=== PATIENT | female | born 1975 | race Caucasian/White ===

== ENCOUNTER 2018-02-01 23:23 | Outpatient (CLI) | payer MEDICAID ==
[2018-02-01 23:44] VITALS: BP 115/56
== END 2018-02-02 00:27 | disposition home or self-care (01) ==
LOC: TRG 23:23
PROVIDERS: ATTEND Obstetrics & Gynecology
DX: O47.1 False labor at or after 37 completed weeks of gestation (principal); Z3A.39 39 weeks gestation of pregnancy
CPT/HCPCS: 59025

== ENCOUNTER 2018-02-10 06:33 | Inpatient (IN) | payer MEDICAID ==
[2018-02-10] MEDS: LACTATED RINGERS 1,000 ML IV SCH ×3 (07:00→08:29)
[2018-02-10] MEDS ORDERED: LACTATED RINGERS 2,000 ML ONE (07:05)
--- NOTE | 2018-02-10 07:36 | Anesthesia Consultation ---
Anesthesia Consult and Med Hx Date of service: 02/10/18 - Airway Anesthetic Teeth Evaluation: Good, Vicki (#8-9) ROM Head & Neck: Adequate Mental/Hyoid Distance: Adequate Mallampati Class: Class II Intubation Access Assessment: Probably Good - Pre-Operative Health Status ASA Pre-Surgery Classification: ASA2 Proposed Anesthetic Plan: Epidural, Spinal - Pulmonary Hx Smoking: No Hx Asthma: No Hx Respiratory Symptoms: No SOB: No COPD: No Hx Pneumonia: No Hx Sleep Apnea: No - Cardiovascular System Hx Hypertension: No Hx Coronary Artery Disease: No Hx Heart Attack/AMI: No Hx Angina: No Hx Percutaneous Transluminal Coronary Angioplasty (PTCA): No Hx Cardia Arrhythmia: No Hx Pacemaker: No Hx Internal Defibrillator: No Hx Valvular Heart Disease: No Hx Heart Murmur: No Hx Peripheral Vascular Disease: No - Central Nervous System Hx Neuromuscular Disorder: No Hx Seizures: No CVA: No Hx Back Pain: No Hx Psychiatric Problems: No - Gastrointestinal Hx Ulcer: No Hx Gastroesophageal Reflux Disease: No - Endocrine Hx Renal Disease: No Hx Liver Disease: No Hx Insulin Dependent Diabetes: No Hx Non-Insulin Dependent Diabetes: No Hx Thyroid Disease: No Hx Hypothyroidism: No Hx Hyperthyroidism: No - Hematic Hx Anemia: No Hx Sickle Cell Disease: No - Other Systems Hx Alcohol Use: No Hx Substance Use: No Hx Cancer: No Hx Obesity: No
--- NOTE | 2018-02-10 07:39 | Anesthesia Day of Surgery ---
Anesthesia Day of Surgery - Day of Surgery Patient Examined: Yes Patient H&P Reviewed: Yes Patient is NPO: Yes
[2018-02-10] MEDS ORDERED: SODIUM CHLORIDE FLUSH SYRINGE 10 ML IV PRN (08:00)
[2018-02-10] MEDS ORDERED: REGLAN ONE (08:05)
[2018-02-10] MEDS ORDERED: BICITRA ONE (08:05)
[2018-02-10] MEDS ORDERED: PITOCin/NS 20 UNIT/1000ML DRIP 20,000 MILLIUNITS/1,000 ML BAG IV ONE (08:05)
[2018-02-10] MEDS ORDERED: ANCEF/STERILE WATER 2 GM/20 ML 2 GM/20 ML SYRINGE IV ONE (08:06)
[2018-02-10] MEDS ORDERED: PEPCID IV ONE (08:06)
--- NOTE | 2018-02-10 08:09 | History and Physical Report ---
History of Present Illness Date of examination: 02/10/18 Date of admission: 02/10/18 06:33 Chief complaint: Scheduled C Section History of present illness: Pt is a 42yo HF EDC 02/14/18; EGA 39 3/7 weeks presents for a Repeat C Section. She received care at [facility] since 15 weeks and course has been uncomplicated except for previous C Section x 2. records are available and GBS is Positive. Past History Past Medical History: no pertinent history Past Surgical History: section (x2) Family/Genetic History: diabetes Social history: no significant social history, - Obstetrical History Expected Date of Delivery: 02/14/18 Actual Gestation: 39 Week(s) 3 Day(s) : 5 Medications and Allergies Allergies Allergy/AdvReac Type Severity Reaction Status Date / Time No Known Allergies Allergy Verified 09/17/13 06:02 Home Medications Medication Instructions Recorded Confirmed Last Taken Type Famotidine [Pepcid] 20 mg PO BID #30 tablet 02/18/16 Unknown Rx Active Meds: Active Medications Diphenhydramine HCl (Benadryl) 12.5 mg IV Q2H PRN PRN Reason: Itching Hydromorphone HCl (Dilaudid) 0.5 mg IV Q5M PRN PRN Reason: Breakthrough Pain Ketorolac Tromethamine (Toradol) 30 mg IV Q6H PRN PRN Reason: Pain, Moderate (4-6) Stop: 02/15/18 07:40 Naloxone HCl (Narcan 0.4 Mg/1 Ml) 0.2 mg IV Q2MIN PRN PRN Reason: Res Rate </= 8 or 02 SAT < 92% Ondansetron HCl (Zofran) 4 mg IV Q8H PRN PRN Reason: Nausea And Vomiting Promethazine HCl (Phenergan) 25 mg PO Q6H PRN PRN Reason: Nausea And Vomiting Promethazine HCl (Phenergan) 25 mg [place] Q6H PRN PRN Reason: Nausea And Vomiting Sodium Chloride (Sodium Chloride Flush Syringe 10 Ml) 10 ml IV PRN NR Review of Systems All systems: negative - Vital Signs Vital signs: Vital Signs Temp Pulse Resp BP 98.1 F 71 16 111/59 02/10/18 07:42 02/10/18 07:42 02/10/18 07:42 02/10/18 07:42 Temp Pulse Resp BP Pulse Ox 98.1 F 71 16 111/59 02/10/18 07:42 02/10/18 07:48 02/10/18 07:42 02/10/18 07:48 - Physical Exam Breasts: Positive: deferred Cardiovascular: Regular rate Lungs: Positive: Clear to auscultation Abdomen: Positive: normal appearance Genitourinary (Female): Positive: normal external genitalia Uterus: Positive: enlarged Extremities: Positive: normal - Obstetrical FHR: category 1 Uterine Contraction Monitor Mode: External Uterine Contraction Pattern: Absent Results Result Diagrams: 02/10/18 Unknown All other labs normal. Assessment and Plan - Patient Problems (1) 39 weeks gestation of Onset Date: 02/10/18 Current Visit: No Status: Acute Plan to address problem: A: IUP @ 39 3/7 weeks Previous C Section x 2 AMA P: Admit to L&D for repeat C Section (2) Previous section Onset Date: 02/10/18 Current Visit: No Status: Acute (3) AMA (advanced maternal age) multigravida 35+ Onset Date: 02/10/18 Current Visit: Yes Status: Chronic Qualifiers: Trimester: third trimester Qualified Code(s): O09.523 - Supervision of elderly multigravida, third trimester
[2018-02-10] MEDS ORDERED: ZOFRAN IV PRN (08:30)
[2018-02-10] MEDS ORDERED: PHENERGAN PO PRN (08:30)
[2018-02-10] MEDS ORDERED: TORADOL IV PRN (08:30)
[2018-02-10] MEDS ORDERED: PEPCID IV NR (08:30)
[2018-02-10] MEDS ORDERED: NARCAN 0.4 MG/1 ML IV PRN ×2 (08:30→10:29)
[2018-02-10] MEDS ORDERED: BENADRYL IV PRN (08:30)
[2018-02-10] MEDS ORDERED: PHENERGAN PR PRN (08:30)
[2018-02-10] MEDS ORDERED: BICITRA PO NR (08:30)
[2018-02-10] MEDS ORDERED: REGLAN IV NR (08:30)
[2018-02-10] MEDS ORDERED: DILAUDID IV PRN (08:30)
[2018-02-10 08:39] LABS: Basophils % (Auto) 0.2 % (0.0-1.8); Eosinophils % (Auto) 0.6 % (0.0-4.3); Hematocrit 31.4 % (30.3-42.9); Lymphocytes % (Auto) 29.7 % (13.4-35.0); Mean Corpuscular HGB Conc 32 % (30-34); Mean Corpuscular Volume 72 fl (79-97); Monocytes # (Auto) 0.6 K/mm3 (0.0-0.8); Monocytes % (Auto) 9.1 % (0.0-7.3); Platelet Count 287 K/mm3 (140-440); Red Blood Count 4.37 M/mm3 (3.65-5.03)
[2018-02-10 08:42] LABS: Mean Corpuscular Hemoglobin 23 pg (28-32); Red Cell Distribution Width 21.3 % (13.2-15.2)
[2018-02-10] MEDS ORDERED: NACL 0.9% IR ONE (09:00)
[2018-02-10] MEDS ORDERED: PITOCin/NS 20 UNIT/1000ML DRIP 20 UNITS/1,000 ML BAG IV SCH ×2 (09:00→12:00)
[2018-02-10] MEDS ORDERED: ANCEF/STERILE WATER 2 GM/20 ML 2 GM/20 ML SYRINGE IV NR (09:00)
[2018-02-10] MEDS ORDERED: WATER FOR IRRIG STERILE IR ONE (09:00)
[2018-02-10] MEDS ORDERED: NEO SYNEPHRINE/NS Syringe(OR USE) IV ONE (09:19)
[2018-02-10] MEDS ORDERED: MORPHINE ONE (10:01)
[2018-02-10] MEDS ORDERED: NACL 0.9% 1000 ML 1,000 ML ONE ×2 (10:15)
[2018-02-10] MEDS ORDERED: MYLICON PO PRN (10:29)
[2018-02-10] MEDS ORDERED: SENOKOT PO PRN (10:29)
[2018-02-10] MEDS ORDERED: TUCKS PAD TP PRN (10:29)
[2018-02-10] MEDS ORDERED: MILK OF MAGNESIA PO PRN (10:29)
[2018-02-10] MEDS ORDERED: NORCO 5/325 PO PRN (10:29)
[2018-02-10] MEDS ORDERED: TYLENOL PO PRN (10:29)
[2018-02-10] MEDS ORDERED: LANSINOH TP PRN (10:29)
--- NOTE | 2018-02-10 10:43 | Operative Report ---
Operative Report Operative Report: Date of procedure: 02/10/2018 Pre-operative diagnosis: 1. Intrauterine at 39-3/7 weeks 2. Previous 2 3. Advanced maternal age Post-operative diagnosis: Same Procedure name(s): Repeat low transverse section Surgeon: Nilo Rodriguez MD Construction Scheduler: None Anesthesia: Spinal anesthesia by Dr. Beard EBL: 700 mL Findings: A 3561 g male Apgars 9 at 1 minute and 9 at 5 minutes. Clear amniotic fluid. Normal uterus with lower uterine segment adhesions. Normal tubes and ovaries bilaterally. Procedure: After the patient was prepped and draped in usual sterile fashion, and after satisfactory level of epidural anesthesia was obtained, the skin knife was used to make a transverse skin incision through the previous skin scars. The incision was excised down to layer of the fascia, which was nicked in the midline and extended laterally using the Bovie cautery. The rectus muscles were dissected off the rectus fascia both superiorly and inferiorly. The rectus bellies in the midline, and the peritoneum was entered under direct visualization. The peritoneal incision was extended superiorly and inferiorly. Lower uterine segment adhesions were taken down using both sharp and blunt dissection. A bladder flap was created and the bladder blade was then placed. The uterus was scored in a curvilinear linear fashion, entered in the midline revealing clear amniotic fluid. The 's head was delivered onto the surgical field, and the oropharynx and nasopharynx were bulb suctioned. The rest of the 's body was delivered, cord was doubly clamped and cut and the was handed to the waiting respiratory team. The placenta was manually removed from the uterus, and the uterus removed from its normal anatomical position. After gentle uterine lavage, the incision was inspected and found to be without extensions. It was then closed in 2 layers using 0 Vicryl suture in a running interlocking fashion, the second layer imbricating the first. After good hemostasis was achieved, copious amounts or irrigation was performed, and the gutters were suctioned free of blood and blood clots. The Tisseel sealant was sprayed across the uterine incision. The uterus was then returned to its normal anatomical position, and after excellent hemostasis assured, the peritoneum was re-approximated using 3-0 Vicryl suture in a running interlocking fashion, and then the rectus muscles were re- approximated using 3-0 Vicryl suture in a [id number] configuration. The fascia was then re-approximated using 0 Vicryl suture in running interlocking fashion. The subcutaneous layer was made hemostatic using Bovie cautery, the Tisseel sealant was sprayed across the fascial incision and the skin edges re- approximated using 4-0 Vicryl suture in a sub-cuticular fashion. Patient tolerated the procedure well was transported to recovery in stable condition.
[2018-02-10] MEDS ORDERED: SODIUM CHLORIDE FLUSH SYRINGE 10 ML IV SCH (11:00)
[2018-02-10] MEDS: D5LR 1,000 ML IV SCH (17:00)
[2018-02-10] MEDS: ANCEF/NS 1 GM/50 ML 1 GM/50 ML BAG IV SCH (18:37)
[2018-02-10 23:19] LABS: Hematocrit 26.5 % (30.3-42.9)
[2018-02-11] MEDS: PERCOCET 5/325 PO PRN ×4 (00:36→21:43)
[2018-02-11] MEDS: D5LR 1,000 ML IV SCH (00:49)
[2018-02-11] MEDS: ANCEF/NS 1 GM/50 ML 1 GM/50 ML BAG IV SCH (02:01)
[2018-02-11] MEDS: MOTRIN PO PRN ×3 (05:53→20:15)
[2018-02-11] MEDS ORDERED: BOOSTRIX IM ONE (06:00)
--- NOTE | 2018-02-11 08:31 | Progress Note ---
Assessment and Plan - Patient Problems (1) 39 weeks gestation of Onset Date: 02/10/18 Current Visit: No Status: Resolved (2) Previous section Onset Date: 02/10/18 Current Visit: No Status: Resolved (3) AMA (advanced maternal age) multigravida 35+ Onset Date: 02/10/18 Current Visit: Yes Status: Chronic Qualifiers: Trimester: third trimester Qualified Code(s): O09.523 - Supervision of elderly multigravida, third trimester (4) Status post Onset Date: 02/11/18 Current Visit: Yes Status: Resolved Plan to address problem: A: S/P Repeat C Section - POD #1 Doing well Asymptomatic anemia - stable P: Continue RPOC Anticipate discharge in 24-48hrs Subjective - Subjective Date of service: 02/11/18 Principal diagnosis: s/p Repeat C Section - POD #1 Interval history: Pt is feeling well without complaints. Bleeding improved. Patient reports: appetite normal, voiding normally, pain well controlled, flatus , ambulating normally, no nauseated [place]: doing well, nursing well, bottle feeding Objective - Vital Signs Latest vital signs: Vital Signs Temp Pulse Resp BP BP Pulse Ox 02/11/18 08:07 20 02/11/18 05:53 20 02/11/18 04:33 98.4 F 78 18 100/60 02/11/18 01:00 98.5 F 87 18 96/52 02/11/18 00:36 18 02/10/18 21:25 98.9 F 90 18 115/51 02/10/18 16:53 98.2 F 77 18 107/53 96 02/10/18 15:07 20 02/10/18 11:50 97.6 F 62 20 99/54 100 02/10/18 11:26 97.8 F 63 22 106/58 100 02/10/18 11:21 60 14 101/52 100 02/10/18 11:16 61 17 100/60 100 02/10/18 11:11 59 L 15 103/55 100 02/10/18 11:06 59 L 17 106/58 100 02/10/18 11:00 62 17 106/53 100 02/10/18 10:58 61 17 106/53 100 02/10/18 10:52 59 L 17 107/56 100 02/10/18 10:46 59 L 19 105/57 100 02/10/18 10:40 58 L 14 109/54 100 02/10/18 10:35 61 17 109/54 100 02/10/18 10:30 61 19 100 02/10/18 10:24 67 19 100 02/10/18 10:22 97.8 F 67 16 105/51 100 Intake and Output 02/10/18 02/11/18 02/11/18 22:59 06:59 14:59 Intake Total 50 977.083 Output Total 300 1300 Balance -250 -322.917 Intake: IV 50 977.083 ANCEF/NS 1 GM/50 ML 1 gm 50 In 50 ml @ 100 mls/hr IV Q8H KEVIN Rx#:[id number] D5lr 1,000 ml @ 125 mls/ 977.083 hr IV DIRECT KEVIN Rx#: [id number] Output: Urine 300 1300 Indwelling Catheter 300 600 Void 700 Other: Total, Output Amount 300 400 - Exam Breasts: Present: deferred Cardiovascular: Present: Regular rate Lungs: Present: Clear to auscultation Abdomen: Present: normal appearance Uterus: Present: normal, firm, fundal height below umbilicus Incision: Present: normal, dry, intact, dressed - Labs Labs: Abnormal lab results 02/10/18 02/10/18 Range/Units 23:04 Unknown Hgb 9.0 L 10.0 L (10.1-14.3) gm/dl Hct 26.5 L (30.3-42.9) % MCV 72 L (79-97) fl MCH 23 L (28-32) pg RDW 21.3 H (13.2-15.2) % Travis % (Auto) 9.1 H (0.0-7.3) % Laboratory Tests 02/10/18 02/10/18 02/10/18 07:00 23:04 Unknown WBC 6.6 RBC 4.37 Hgb 9.0 L 10.0 L Hct 26.5 L 31.4 MCV 72 L MCH 23 L MCHC 32 RDW 21.3 H Plt Count 287 Lymph % (Auto) 29.7 Travis % (Auto) 9.1 H Eos % (Auto) 0.6 Baso % (Auto) 0.2 Lymph # 2.0 Travis # 0.6 Eos # 0.0 Baso # 0.0 Seg Neutrophils % 60.4 Seg Neutrophils # 4.0 Blood Type B POSITIVE Antibody Screen Negative
[2018-02-11] MEDS ORDERED: BENADRYL PO PRN (10:31)
[2018-02-11] MEDS ORDERED: M-M-R II VACCINE SUB-Q ONE (10:33)
[2018-02-11] MEDS: PRENATAL VITAMIN PO SCH (12:20)
[2018-02-11] MEDS: FEOSOL PO SCH (12:20)
[2018-02-12] MEDS: PERCOCET 5/325 PO PRN ×2 (04:21→10:01)
[2018-02-12] MEDS: MOTRIN PO PRN (08:09)
--- NOTE | 2018-02-12 08:24 | Progress Note ---
Assessment and Plan - Patient Problems (1) 39 weeks gestation of Onset Date: 02/10/18 Current Visit: No Status: Resolved (2) Previous section Onset Date: 02/10/18 Current Visit: No Status: Resolved (3) AMA (advanced maternal age) multigravida 35+ Onset Date: 02/10/18 Current Visit: Yes Status: Chronic Qualifiers: Trimester: third trimester Qualified Code(s): O09.523 - Supervision of elderly multigravida, third trimester (4) Status post Onset Date: 02/11/18 Current Visit: Yes Status: Resolved Plan to address problem: A: S/P Repeat C Section - POD #2 Doing well Asymptomatic anemia - stable P: May go home today. Subjective - Subjective Date of service: 02/12/18 Principal diagnosis: s/p Repeat C Section - POD #2 Interval history: Pt is feeling well without complaints. Bleeding improved. She is tolerating a reg diet without nausea or vomiting, ambulating and voiding without difficulty. She desires to go home today. Patient reports: appetite normal, voiding normally, pain well controlled, flatus , ambulating normally, no dizzy ambulation, no nauseated : doing well, nursing well, bottle feeding Objective - Vital Signs Latest vital signs: Vital Signs Temp Pulse Resp BP BP Pulse Ox 02/12/18 07:26 98.5 F 75 18 111/51 95 02/12/18 04:21 18 02/12/18 00:00 98.6 F 74 16 114/78 02/11/18 21:43 20 02/11/18 20:15 18 02/11/18 16:57 98.5 F 77 18 105/62 02/11/18 16:09 80 98 02/11/18 15:00 20 02/11/18 12:20 20 02/11/18 08:44 98.6 F 79 18 119/75 Intake and Output 02/11/18 02/12/18 02/12/18 22:59 06:59 14:59 Intake Total 240 500 Output Total 2 Balance 238 500 Intake: Oral 240 200 Intake, Free Water 300 Output: Urine 2 Void 2 Other: Total, Intake Amount 240 200 Total, Output Amount 2 # Voids Void 2 - Exam Breasts: Present: deferred Cardiovascular: Present: Regular rate Lungs: Present: Clear to auscultation Abdomen: Present: normal appearance, soft Uterus: Present: normal, firm, fundal height below umbilicus Extremities: Present: normal Incision: Present: normal, dry, intact, dressed
--- NOTE | 2018-02-12 09:10 | Discharge Summary ---
Providers - Providers Date of Admission: 02/10/18 06:33 Date of discharge: 02/12/18 Attending physician: SVETLANA HOUSE Primary care physician: SVETLANA HOUSE Hospitalization Reason for admission: section, IUP at term Delivery: Procedure: section, repeat low transverse Episiotomy: none Laceration: none Incision: normal, dry, intact Other procedures: none complications: none Discharge diagnosis: IUP at term delivered [place] baby: male Hospital course: Pt is a 42yo HF EDC 02/14/18; EGA 39 3/7 weeks who presented for a Repeat C Section. She received care at [facility] since 15 weeks and course has been uncomplicated except for previous C Section x 2. records are available and GBS was Positive. She underwent an uncomplicated Repeat C Section and tolerated the procedure well. By POD #2 she was tolerating a reg diet without nausea or vomiting, ambulating and voiding without difficulty. She was therefore discharged to home on POD #2 in stable condition. Condition at discharge: Good Disposition: DC-01 TO HOME OR SELFCARE - Discharge Diagnoses (1) 39 weeks gestation of Status: Resolved (2) Previous section Status: Resolved (3) AMA (advanced maternal age) multigravida 35+ Status: Chronic Qualifiers: Trimester: third trimester Qualified Code(s): O09.523 - Supervision of elderly multigravida, third trimester (4) Status post Status: Resolved Plan - Discharge Medications Prescriptions: Ferrous Sulfate [Feosol 325 MG tab] 325 mg PO BID #60 tablet HYDROcodone/APAP 5-325 [[place] 5/325] 1 each PO Q6HR PRN #30 tablet PRN Reason: Pain Ibuprofen [Motrin] 800 mg PO Q8HR PRN #30 tablet PRN Reason: Moder Pain Unrelieved By [place] Vit Calc,Iron,Folic [ Vitamins] 1 each PO DAILY #30 tablet - Provider Discharge Summary Activity: routine, no sex for 6 weeks, no heavy lifting 4 weeks, no strenuous exercise Diet: routine Instructions: routine Additional instructions: [] Smoking cessation referral if applicable(refer to patient education folder for contact #) [] Refer to [facility]'s [facility] Booklet Call your doctor immediately for: * Fever > 100.5 * Heavy vaginal bleeding ( >1 pad per hour) * Severe persistent headache * Shortness of breath * Reddened, hot, painful area to leg or breast * Drainage or odor from incision. * Keep incision clean and dry at all times and follow doctor's instructions regarding bathing/showering - Follow up plan Follow up: SVETLANA HOUSE MD [Primary Care Provider] - 14 Days ARINA ALTAMIRANO CNM [Advanced Practice Nurse] - 14 Days
[2018-02-12] MEDS: FEOSOL PO SCH (10:01)
[2018-02-12] MEDS: PRENATAL VITAMIN PO SCH (10:01)
[2018-02-12 13:49] VITALS: BP 111/63
== END 2018-02-12 15:25 | disposition home or self-care (01) | DRG 766 ==
LOC: APU 06:33 → OB 12:00
PROVIDERS: ADMIT Obstetrics & Gynecology; ATTEND Obstetrics & Gynecology
PROC: 10D00Z1 Extraction of Products of Conception, Low, Open Approach (ICD-10-PCS; principal; 2018-02-10)
PROC: 3E0234Z Introduction of Serum, Toxoid and Vaccine into Muscle, Percutaneous Approach (ICD-10-PCS; 2018-02-11)
DX: O34.211 Maternal care for low transverse scar from previous cesarean delivery (principal); Z3A.39 39 weeks gestation of pregnancy; Z37.0 Single live birth; Z23 Encounter for immunization; N73.6 Female pelvic peritoneal adhesions (postinfective); O99.89 Other specified diseases and conditions complicating pregnancy, childbirth and the puerperium; O90.81 Anemia of the puerperium; D64.9 Anemia, unspecified; O99.824 Streptococcus B carrier state complicating childbirth; Z83.3 Family history of diabetes mellitus
CPT/HCPCS: 36415; 85014; 85018; 85025; 86850; 86900; 86901; 99211; C9250; G0463; J0690; J1200; J1885; J2270; J2370; J2405; J2590; J2765; J7030; J7120; J7121